=== PATIENT | male | born 1980 | race Caucasian/White ===

== ENCOUNTER 2020-09-28 18:06 | Emergency (ER) | payer MEDICAID ==
[~2020-09-28] VITALS: Ht 180.3 cm; Wt 107.0 kg
[2020-09-28 18:58] VITALS: BP 111/73
--- NOTE | 2020-09-28 19:36 | NUR ---
Kenrick mendenhall in [facility] - 09/28/20 at 1945 by [facility] LEFT WITHOUT BEING DISCHARGED
[2020-09-28 19:44] VITALS: BP 111/73
--- NOTE | 2020-09-28 19:45 | NUR ---
Patient discharged with v/s stable. Written and verbal after care instructions given and explained. Patient alert, oriented and verbalized understanding of instructions. Ambulatory with steady gait. All questions addressed prior to discharge. ID band removed. Patient advised to follow up with PMD. Rx of FLEXERIL, MOTRIN given. Patient educated on indication of medication including possible reaction and side effects. Opportunity to ask questions provided and answered.
== END 2020-09-28 19:45 | disposition home or self-care (01) ==
LOC: EDSEX 18:06 → MED 18:06
DX: S16.1XXA Strain of muscle, fascia and tendon at neck level, initial encounter (principal); S76.012A Strain of muscle, fascia and tendon of left hip, initial encounter; S86.912A Strain of unspecified muscle(s) and tendon(s) at lower leg level, left leg, initial encounter; F17.210 Nicotine dependence, cigarettes, uncomplicated; V49.9XXA Car occupant (driver) (passenger) injured in unspecified traffic accident, initial encounter; Y93.89 Activity, other specified; Y92.89 Other specified places as the place of occurrence of the external cause; Y99.8 Other external cause status
CPT/HCPCS: 99283

== ENCOUNTER 2020-12-07 01:58 | Emergency (ER) | payer MEDICAID ==
[~2020-12-07] VITALS: Ht 180.3 cm; Wt 106.1 kg
[2020-12-07 02:04] VITALS: BP 143/83
--- NOTE | 2020-12-07 02:15 | NUR ---
to ED bed 04.
[2020-12-07] MEDS ORDERED: NACL 0.9% 1,000 ML IV ONE ×2 (02:30→02:40)
--- NOTE | 2020-12-07 02:35 | NUR ---
Dr. Calix with pt for MSE.
--- NOTE | 2020-12-07 02:46 | NUR ---
see complete assessment.
[2020-12-07 02:51] LABS: RED BLOOD CELL COUNT(AUTO) 4.43 MIL/uL (4.20-6.10)
[2020-12-07 02:57] LABS: BASOPHILS # (AUTO) 0.1 K/uL (0.00-0.22); BASOPHILS % (AUTO) 0.4 % (0.0-2.0); EOSINOPHILS # (AUTO) 0.2 K/uL (0-0.4); EOSINOPHILS % (AUTO) 1.2 % (0.0-4.0); HEMATOCRIT 41.2 % (36-52); LYMPHOCYTES # (AUTO) 2.8 K/uL (2.0-11.5); LYMPHOCYTES % (AUTO) 19.8 % (20.5-51.1); MEAN CORPUSCULAR HEMOGLOBIN 32 pg (27-31); MEAN CORPUSCULAR HGB CONC 34 g/dL (33-37); MONOCYTES % (AUTO) 6.9 % (1.7-9.3); NEUTROPHILS # (AUTO) 10.2 K/uL (1.8-7.7); PLATELET COUNT (AUTO) 335 K/uL (140-450); RED CELL DISTRIBUTION WIDTH 12.6 % (11.6-13.7); WHITE BLOOD COUNT (AUTO) 14.2 K/uL (4.8-10.8)
[2020-12-07 03:04] LABS: APPEARANCE,URINE BLOODY (CLEAR); BILIRUBIN,URINE NEGATIVE (NEGATIVE); BLOOD, URINE 3+ (NEGATIVE); COLOR,URINE BLOODY (YELLOW); LEUKOCYTE ESTERASE ,URINE 2+ (NEGATIVE); NITRITE, URINE POSITIVE (NEGATIVE); PH,URINE 6.5 (5.0-9.0); UGLUCOSE NEGATIVE (NEGATIVE)
[2020-12-07 03:05] LABS: RBC,URINE TOO NUMEROUS TO COUN /HPF (0-5)
[2020-12-07 03:07] LABS: ALBUMIN 3.9 g/dL (3.4-5.0); ANION GAP 13.7 (8-16); POTASSIUM 3.7 mmol/L (3.5-5.1); TOTAL BILIRUBIN 0.6 mg/dL (0.0-1.0)
[2020-12-07 03:12] LABS: NEUTROPHILS % (AUTO) 71.7 % (42.2-75.2)
--- NOTE | 2020-12-07 03:30 | NUR ---
pt taken to CT via w/c
--- NOTE | 2020-12-07 03:44 | NUR ---
pt returned from CT. connected back to NS bolus. pt does not appear to be in any distress at this time.
--- NOTE | 2020-12-07 04:09 | NUR ---
pt sitting upright on bed using cell phone. does not appear to be in any distress at this time. VSS.
[2020-12-07 05:02] VITALS: BP 138/88
--- NOTE | 2020-12-07 05:02 | NUR ---
pt laying down in semi fowlers position. does not appear to be in any distress. currently using cell phone. no other needs at this time.
[2020-12-07 05:20] LABS: CKMB RELATIVE INDEX 0.8 (0.0-2.5); CREATINE KINASE MB 6.4 ng/mL (0-3.6)
[2020-12-07] MEDS ORDERED: CEPH500C16 PO (05:20)
== END 2020-12-07 05:26 | disposition home or self-care (01) ==
LOC: MED 01:58
DX: R31.9 Hematuria, unspecified (principal); R30.9 Painful micturition, unspecified
CPT/HCPCS: 36415; 74176; 80053; 81001; 82550; 82553; 83036; 83690; 85025; 87086; 96360; 99284; J7030